=== PATIENT | male | born 1950 | race Caucasian/White ===

== ENCOUNTER 2017-08-14 08:16 | Emergency (ER) | payer OTHER ==
[2017-08-14 08:24] VITALS: BP 162/111
[2017-08-14] MEDS ORDERED: BUFFERED LIDOCAINE 10 ML SYRINGE SUBQ STA (08:25)
--- NOTE | 2017-08-14 08:54 | ED Physician Documentation ---
PD HPI UPPER EXT INJURY - Stated complaint Stated Complaint: LT HAND LAC - Chief complaint Chief Complaint: Laceration - History obtained from History obtained from: Patient - History of Present Illness Location: Left, Finger (index and middle) Type of injury: Blunt / blow, Laceration Where injury occurred: Work Timing - onset: Today Timing - duration: Minutes Timing - details: Abrupt onset, Still present Improved by: Rest, Immobilization Worsened by: Moving, Palpating Associated symptoms: No: Weakness, Numbness, Tingling, Swelling Contributing factors: No: Anticoagulated Similar symptoms before: Diagnosis (laceration) Recently seen: Not recently seen - Additonal information Additional information: Previously well 67-year-old male 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 He has been able to control bleeding with direct pressure. Review of Systems Constitutional: denies: Fever Eyes: denies: Decreased vision Ears: denies: Ear pain Nose: denies: Congestion Throat: denies: Sore throat Respiratory: denies: Cough GI: denies: Vomiting Skin: reports: Laceration (s) Musculoskeletal: reports: Extremity pain. denies: Neck pain, Back pain Neurologic: denies: Generalized weakness, Focal weakness, Numbness PD PAST MEDICAL HISTORY - Past Medical History Past Medical History: No - Past Surgical History Past Surgical History: No - Present Medications Home Medications: Ambulatory Orders Medication Instructions Recorded Confirmed No Known Home Medications [No 08/14/17 08/14/17 Known Home Medications] - Allergies Allergies/Adverse Reactions: Allergies Allergy/AdvReac Type Severity Reaction Status Date / Time No Known Drug Allergies Allergy Verified 11/20/15 07:15 - Social History Does the pt smoke?: No Smoking Status: Never smoker Does the pt drink ETOH?: No Does the pt have substance abuse?: No PD ED PE NORMAL - Vitals Vital signs reviewed: Yes (hypertensive) - General General: Alert and oriented X 3, No acute distress, Well developed/nourished - HEENT HEENT: Atraumatic, PERRL, EOMI - Respiratory Respiratory: No respiratory distress - Derm Derm: Normal color, Warm and dry, No rash - Extremities Extremities: No deformity, No edema, Other (There is a 3cm laceration dorsally over the proximal phlange of the index finger that does not involve deeper structures. There is a second 2cm laceration over the left middle finger dorsum of the proximal phlange and this laceratio is more superficial but penetrates the dermis. ) - Neuro Neuro: No motor deficit, No sensory deficit Eye Opening: Spontaneous Motor: Obeys Commands Verbal: Oriented GCS Score: 15 - Psych Psych: Normal mood, Normal affect Results - Vitals Vitals: Vital Signs - 24 hr 08/14/17 08:21 Temperature 36.8 C Heart Rate 67 Respiratory 16 Rate Blood Pressure 162/111 H O2 Saturation 97 Oxygen O2 Source Room air Procedures - Laceration (location) index and middle left Length in cm: 5 Wound type: Linear, Flap, Clean Neurovascular status: Sensory intact, Motor intact, Vascular intact Tendon involvement: Tendon intact Anesthesia: Lidocaine 1%, With bicarb Wound Preparation: Hibiclens, Irrigated copiously NS, Wound explored, To the base Skin layer closure: Nylon, Interrupted, Size #-0 - enter number (4-0) Other: Patient tolerated well, No complications, Neurovascular intact, Dressing applied, Tetanus UTD Complexity: Simple PD MEDICAL DECISION MAKING - ED course Complexity details: considered differential, d/w patient ED course: 67-year-old male with a laceration to the dorsal surface of the left index and middle finger has significant bleeding to the index finger laceration this is controlled with direct pressure and the bleeding is resolved with closing of the wound. Patient will need to have sutures removed in 7-10 days. Departure - Departure Disposition: 01 Home, Self Care Clinical Impression: Finger laceration Qualifiers: Encounter type: initial encounter Finger: index finger Damage to nail status: without damage Foreign body presence: without foreign body Laterality: left Qualified Code(s): S61.211A - Laceration without foreign body of left index finger without damage to nail, initial encounter Condition: Stable Instructions: ED Laceration Hand Follow-Up: Adam Page MD [Primary Care Provider] - Comments: sutures will need to be removed in 7-10 days.
[2017-08-14 09:01] LABS: MUDS CUTOFF CONCENTRATIONS CUTOFF CONC BELOW:
[2017-08-14 09:14] LABS: AMPHETAMINE SCREEN,URINE NEGATIVE (NEGATIVE); BENZODIAZEPINES SCREEN, URINE NEGATIVE (NEGATIVE); COCAINE SCREEN URINE NEGATIVE (NEGATIVE); METHADONE SCREEN, URINE NEGATIVE (NEGATIVE); METHAMPHETAMINES SCREEN, URINE NEGATIVE (NEGATIVE); OPIATE SCREEN, URINE NEGATIVE (NEGATIVE); OXYCODONE SCREEN, URINE NEGATIVE (NEGATIVE); PROPOXYPHENE SCREEN, URINE NEGATIVE (NEGATIVE); TRICYCLIC ANTIDEPRESSANT,URINE NEGATIVE (NEGATIVE)
== END 2017-08-14 09:11 | disposition home or self-care (01) ==
LOC: ED 08:16
DX: S61.210A Laceration without foreign body of right index finger without damage to nail, initial encounter (principal); S61.212A Laceration without foreign body of right middle finger without damage to nail, initial encounter; W22.8XXA Striking against or struck by other objects, initial encounter; Y99.0 Civilian activity done for income or pay
CPT/HCPCS: 1040M; 12002; 80306; 99283

== ENCOUNTER 2020-06-16 19:01 | Observation (INO) | payer MEDICARE, OTHER ==
--- NOTE | 2020-06-16 19:21 | ED Physician Documentation ---
PD HPI FOCAL NEURO - Stated complaint Stated Complaint: STROKE SYMPTOMS - Chief complaint Chief Complaint: Neuro - History obtained from History obtained from: Patient - Additional information Additional information: 70-year-old gentleman with untreated hypertension presents with right arm weakness that he noted upon getting up this morning at 8 AM. It was not present when he went to bed at approximately midnight last night. He does not notice any numbness or leg weakness. No headache. No recent head injury. Review of Systems Ten Systems: 10 systems reviewed and negative Constitutional: reports: Reviewed and negative Cardiac: reports: Reviewed and negative Respiratory: reports: Reviewed and negative PD PAST MEDICAL HISTORY - Past Surgical History Past Surgical History: No - Present Medications Home Medications: Ambulatory Orders Medication Instructions Recorded Confirmed No Known Home Medications 08/14/17 08/14/17 - Allergies Allergies/Adverse Reactions: Allergies Allergy/AdvReac Type Severity Reaction Status Date / Time No Known Drug Allergies Allergy Verified 11/20/15 07:15 - Social History Does the pt smoke?: No Smoking Status: Never smoker Does the pt drink ETOH?: No Does the pt have substance abuse?: No PD ED PE NORMAL - Vitals Vital signs reviewed: Yes - General General: Alert and oriented X 3, No acute distress - HEENT HEENT: PERRL, EOMI - Neck Neck: Supple, no meningeal sign, No bony TTP - Cardiac Cardiac: RRR, No murmur - Respiratory Respiratory: No respiratory distress, Clear bilaterally - Abdomen Abdomen: Soft, Non tender - Back Back: No CVA TTP, No spinal TTP - Derm Derm: Normal color, Warm and dry - Extremities Extremities: No edema, No calf tenderness / cord - Neuro Neuro: Alert and oriented X 3, No motor deficit, No sensory deficit, Normal speech NIHSS - Time Time: 19:15 - Level of Consciousness Level of consciousness: (0) Alert, Keenly responsive LOC Questions: (0) Answers both Q's correct LOC Commands: (0) Performs both correctly - Gaze Best Gaze: (0) Normal - Visual Visual: (0) No loss - Facial Palsy Facial Palsy: (0) Normal, symmetrical movement - Motor Arms (both separate) Motor Arm (right): (0) No drift Motor Arm (left): (0) No drift - Motor Legs (both separate) Motor Leg (right): (0) No drift Motor Leg (left): (0) No drift - Limb Ataxia Limb Ataxia: (0) Absent - Sensory Sensory: (0) Normal - Best Language Best Language: (0) No aphasia - Dysarthria Dysarthria: (0) Normal - Extinction and Inattention (formally neg Extinction and inattention: (0) No abnormality - Total Score/Results Total Score/Result: 0 Results - Vitals Vitals: Vital Signs - 24 hr 06/16/20 06/16/20 06/16/20 19:05 19:15 19:30 Temperature 36.1 C L Heart Rate 90 86 81 Respiratory 17 15 15 Rate Blood Pressure 206/113 H 200/125 H 184/108 H O2 Saturation 97 95 96 06/16/20 06/16/20 20:00 21:37 Temperature Heart Rate 83 86 Respiratory 16 16 Rate Blood Pressure 183/113 H 187/130 H O2 Saturation 95 Oxygen O2 Source Room air - EKG (time done) 1911 Rate: Rate (enter#) (86) Rhythm: NSR, LAE [place]: Normal Intervals: Normal SD QRS: Normal Ischemia: Normal ST segments - Labs Labs: Laboratory Tests 06/16/20 06/16/20 06/16/20 19:22 19:22 19:22 WBC 10.4 RBC 5.90 Hgb 17.9 Hct 52.3 H MCV 88.6 MCH 30.3 MCHC 34.2 RDW 13.7 Plt Count 259 MPV 9.2 Neut # (Auto) 7.0 H Lymph # (Auto) 2.8 [place] # (Auto) 0.4 Eos # (Auto) 0.2 Baso # (Auto) 0.1 Absolute Nucleated RBC 0.00 Nucleated RBC % 0.0 PT 12.8 H INR 1.2 Sodium 138 Potassium 3.5 Chloride 103 Carbon Dioxide 27 Anion Gap 8.0 BUN 18 Creatinine 1.3 H Estimated GFR (MDRD) 55 L Glucose 137 H POC Whole Bld Glucose Calcium 9.1 Total Bilirubin 1.1 H AST 25 ALT 32 Alkaline Phosphatase 46 Total Protein 7.6 Albumin 4.6 Globulin 3.0 Albumin/Globulin Ratio 1.5 06/16/20 19:24 WBC RBC Hgb Hct MCV MCH MCHC RDW Plt Count MPV Neut # (Auto) Lymph # (Auto) [place] # (Auto) Eos # (Auto) Baso # (Auto) Absolute Nucleated RBC Nucleated RBC % PT INR Sodium Potassium Chloride Carbon Dioxide Anion Gap BUN Creatinine Estimated GFR (MDRD) Glucose POC Whole Bld Glucose 143 H Calcium Total Bilirubin AST ALT Alkaline Phosphatase Total Protein Albumin Globulin Albumin/Globulin Ratio - Rads (name of study) CTA Head and neck Radiology: EMP read contemporaneously PD MEDICAL DECISION MAKING - ED course ED course: 70-year-old gentleman presents with right arm weakness although his NIH stroke scale is 0 and he is well outside of any time window that would be appropriate for considering TPA. CT angiography of the head and neck demonstrates only vertebral artery plaquing and calcification but without large vessel occlusion or actual evidence of acute stroke or hemorrhage. Discussed with him that standard of care would be admission for further work-up including MRI and that the MRI machine here is down for the foreseeable future and offered to send him to another facility for standard work-up but he prefers to stay here and have the MRI done subsequently as an outpatient and Dr. Verasef agrees to hospitalize him in observation. Departure - Departure Disposition: ED Place in Observation Clinical Impression: Cerebrovascular accident (CVA) Qualifiers: CVA mechanism: unspecified Qualified Code(s): I63.9 - Cerebral infarction, unspecified Condition: Stable
[2020-06-16 19:34] LABS: BASOPHILS # (AUTO) 0.1 10^3/uL (0.0-0.1); BASOPHILS % (AUTO) 0.5 %; EOSINOPHILS # (AUTO) 0.2 10^3/uL (0.0-0.7); EOSINOPHILS % (AUTO) 1.7 %; HCT - HEMATOCRIT 52.3 % (42.0-52.0); HGB - HEMOGLOBIN 17.9 g/dL (14.0-18.0); LYMPHOCYTES # (AUTO) 2.8 10^3/uL (1.5-3.5); LYMPHOCYTES % (AUTO) 26.7 %; MEAN CORPUSCULAR HEMOGLOBIN 30.3 pg (27.0-31.0); MEAN CORPUSCULAR HGB CONC 34.2 g/dL (32.0-36.0); MEAN CORPUSCULAR VOLUME 88.6 fL (80.0-94.0); MEAN PLATELET VOLUME 9.2 fL (7.4-11.4); MONOCYTES # (AUTO) 0.4 10^3/uL (0.0-1.0); NEUTROPHILS % (AUTO) 66.8 %; PLT - PLATELET COUNT 259 10^3/uL (130-450); RED CELL DISTRIBUTION WIDTH 13.7 % (12.0-15.0); WHITE BLOOD COUNT 10.4 x10^3/uL (4.8-10.8)
[2020-06-16 19:40] LABS: INR 1.2 (0.8-1.2); PT - PROTHROMBIN TIME 12.8 secs (9.9-12.6)
[2020-06-16] MEDS ORDERED: IOVERSOL 320 100 ML VIAL IVP ONE ×2 (19:40→20:39)
[2020-06-16 19:46] LABS: ALBUMIN 4.6 g/dL (3.2-5.5); ALBUMIN/GLOBULIN RATIO 1.5 (1.0-2.2); BILIRUBIN,TOTAL 1.1 mg/dL (0.2-1.0); CALCIUM 9.1 mg/dL (8.5-10.3); CREATININE 1.3 mg/dL (0.6-1.2); POTASSIUM 3.5 mmol/L (3.5-5.0); TOTAL PROTEIN 7.6 g/dL (6.7-8.2)
--- NOTE | 2020-06-16 21:12 | CT Report ---
PROCEDURE: ANGIO HEAD W/WO INDICATIONS: Stroke like sx CONTRAST: IV CONTRAST: Optiray 320 ml: 100 PO CONTRAST: *NO PO CONTRAST TECHNIQUE: Precontrast 4.5 mm thick angled axial sections acquired from the foramen magnum to the vertex. Afte r the administration of intravenous contrast, 1 mm thick sections acquired through the [place] of [place] is. Postcontrast 4.5 mm thick sections then re-acquired from the foramen magnum to the vertex. 3-di mensional asyfune-voiqgirrk-qgzzzadrcn (MIP) and/or volume rendering reformats were acquired of the c entral intracranial vasculature. For radiation dose reduction, the following was used: automated ex posure control, adjustment of mA and/or kV according to patient size. COMPARISON: None. FINDINGS: Image quality: Excellent. Anterior circulation: Intracranial internal carotid arteries are normal in size and flow. Both ACAs are supplied by the left internal carotid artery. 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 The f low within the paired anterior cerebral arteries is normal and symmetric. The flow within the middle cerebral arteries is normal and symmetric. No aneurysms are seen. Posterior circulation: Visualized portions of the vertebral arteries demonstrate normal caliber, and join to form a normal appearing basilar artery. Flow within the posterior cerebral arteries is norm al and symmetric. No aneurysms are seen. CSF spaces: Ventricles are normal in size and shape. Basal cisterns are patent. No extra-axial flu id collections. Brain: No midline shift. No intracranial bleeds or masses. Johnson-white matter interface appears int act. Skull and face: Calvarium and facial bones appear intact, without suspicious lesions. Sinuses: Visualized sinuses and mastoids are clear. IMPRESSION: No intracranial focal stenosis or occlusion. No acute intracranial abnormality Reviewed by: Saul Cahn MD on 06/16/2020 9:11 PM PDT Approved by: Saul Chan MD on 06/16/2020 9:11 PM PDT Station ID: [id number]
--- NOTE | 2020-06-16 21:16 | CT Report ---
PROCEDURE: ANGIO NECK W INDICATIONS: Stroke like sx CONTRAST: IV CONTRAST: Optiray 320 ml: 100 PO CONTRAST: *NO PO CONTRAST TECHNIQUE: After the administration of intravenous contrast, 1.5 mm axial sections acquired from the aortic arch to the [place] of [place]. Coronal 3-D maximum intensity projection (MIP) and/or volume rendering ref ormats were then performed. For radiation dose reduction, the following was used: automated exposur e control, adjustment of mA and/or kV according to patient size. COMPARISON: None. FINDINGS: Image quality: Excellent. Carotid system: The great vessels demonstrate a conventional anatomy as they arise from the aortic a [facility]. The origins of the common carotid arteries appear patent. The common carotid arteries demonstr ate normal calibers and courses. The bifurcation regions appear normal bilaterally. The internal ca rotid arteries demonstrate normal caliber and course. Bilateral carotid atherosclerotic calcification s. Posterior circulation: Densely calcified origins of the vertebral arteries. The more superior portions of the vertebral arteries demonstrate normal course and caliber. They kuldeep n to form a normal appearing basilar artery. Soft tissues: Visualized neck soft tissues demonstrate no suspicious abnormalities. The thyroid gla nd is normal in size. Bones: No suspicious bony lesions. Cervical spondylosis and facet arthropathy. IMPRESSION: Mild bilateral carotid atherosclerotic calcifications. No hemodynamically significant focal ICA steno sis. Bilateral dense calcified plaque seen at the origin of the vertebral arteries. The estimate of stenosis included in the report of the imaging study was calculated using the NASCET method Reviewed by: Saul Chan MD on 06/16/2020 9:15 PM PDT Approved by: Saul Chan MD on 06/16/2020 9:15 PM PDT Station ID: [id number]
[2020-06-16] MEDS ORDERED: ASPIRIN 325 MG TABLET PO STA (21:25)
[2020-06-16] MEDS ORDERED: SODIUM CHLORIDE FLUSH 0.9% 10 ML SYRINGE IVP PRN (21:28)
[2020-06-16] MEDS ORDERED: ONDANSETRON 4 MG/2 ML VIAL IVP PRN (21:28)
[2020-06-16] MEDS ORDERED: ONDANSETRON ODT 4 MG TABLET TL PRN (21:28)
[2020-06-16] MEDS ORDERED: ACETAMINOPHEN 325 MG TABLET PO PRN (21:28)
--- NOTE | 2020-06-16 21:33 | HISTORY & PHYSICAL EXAMINATION ---
Chief Complaint - Chief Complaint Chief Complaint: Right arm weakness History of Present Illness - Admitted From Admitted From:: Home - History Obtained From Records Reviewed: Yes History obtained from: Patient, ER Physician, EMR - History of Present Illness HPI Comment/Other: This is a 70-year-old male with no significant past medical history who presents today complaining of right arm weakness that began this morning. He states he woke up at about 8 AM and noticed that his right arm was weaker than normal. He felt weak throughout the whole arm but denied any numbness or tingling. He reports the weakness was quite minimal and that it felt more like he had poor dexterity. He felt like he was struggling to drink coffee in the morning using his right hand and would need to assist his hand with his left hand to prevent him from spilling. He reported no facial droop or difficulty speaking. He reported no lower extremity weakness. Despite denying lower extremity weakness, he states his legs felt a little heavier today and he felt like his balance may have been slightly off. Denied any headache or change in vision. He reports no prior history of strokes. He feels like his symptoms have not gotten a whole lot better or worse throughout the day. He is not on aspirin. Denies a history of hypertension or diabetes. He quit smoking over 30 years ago but did smoke 2- 1/2 packs a day for about 20 years. In the emergency department, he was found to be afebrile with a temperature of 36.1 C. Heart rate is 90. Blood pressure was 206/113. He was not tachypneic and was saturating well on room air. Labs were significant for a creatinine of 1.3. CTA of the head with and without contrast was unremarkable. CTA of the neck showed mild bilateral carotid calcifications and bilateral dense calcified plaques at the origin of the vertebral arteries. He was given aspirin in the emergency department and medicine was consulted for admission. The emergency department provider did speak with the patient regarding transfer for MRI but the patient declined this. I did discuss goals of care with the patient he would like to be a full code. History - Past Medical History Cardiovascular: reports: None Respiratory: reports: None Neuro: reports: None - Family & Social History Family History Comment/Other: He reports his father had hypertension and a stroke. His mother had COPD. She was a smoker. Living arrangement: At home Living Situation: With spouse/s.o. Social History Notes: He lives at home with his . 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 He smokes 2-1/2 packs a day for about 20 years but quit over 30 years ago. Will have an occasional alcoholic beverage. Meds/Allgy - Home Medications Home Medications: Ambulatory Orders Medication Instructions Recorded Confirmed No Known Home Medications 08/14/17 08/14/17 - Allergies Allergies/Adverse Reactions: Allergies Allergy/AdvReac Type Severity Reaction Status Date / Time No Known Drug Allergies Allergy Verified 11/20/15 07:15 Review of Systems - Constitutional Constitutional: reports: Weakness. denies: Fatigue, Fever, Chills - Eyes Eyes: denies: Blurred vision, Vision loss - Ears, Nose & Throat Ears, Nose & Throat: denies: Sore throat - Cardiovascular Cariovascular: denies: Chest pain, Lightheadedness, Syncope, Exertional dyspnea, Decr. exercise tolerance - Respiratory Respiratory: denies: Cough, SOB at rest, SOB with exertion - Gastrointestinal Gastrointestinal: denies: Abdominal pain, Constipation, Diarrhea, Nausea, Vomiting - Genitourinary Genitourinary: denies: Dysuria, Frequency, Urgency - Musculoskeletal Musculoskeletal: reports: Muscle weakness. denies: Muscle pain, Limited range of motion - Integumentary Integumentary: denies: Rash - Neurological Neurological: reports: Focal weakness, Abnormal gait, Incoordination. denies: General weakness, Headache, Dizziness, Numbness, Pre-existing deficit, Slurred speech - Hematologic/Lymphatic Hematologic/Lymphatic: denies: Bleeding tendencies - All Other Systems All Other Systems: reports: Reviewed and negative Prior Level of Functionality: He is independent with his ADLs. Exam - Vital Signs Reviewed Vital Signs: Yes Vital Signs: Vital Signs x48h Temp Pulse Resp BP Pulse Ox 06/16/20 19:05 36.1 C L 90 17 206/113 H 97 - Physical Exam General Appearance: positive: No acute distress, Alert Eyes Bilateral: positive: Normal inspection, PERRL, Conjunctivae nml ENT: positive: ENT inspection nml Neck: positive: Nml inspection Respiratory: positive: No respiratory distress. negative: Wheezes, Rales Cardiovascular: positive: Regular rate & rhythm, No murmur. negative: Irregularly irregular, Tachycardia, Systolic murmur Abdomen: positive: Non-tender, No distention. negative: Tenderness Skin: positive: Warm, Dry Extremities: positive: Full ROM, No pedal edema Neurologic/Psychiatric: positive: Sensation nml, Other (He has a slightly abnormal jephto-ew-tmda test with the right upper extremity. There is very mild pronator drift of the right upper extremity. Negative [place]. Normal wdco-hf-mpme.). negative: Motor nml (His gross motor strength is 5 out of 5 in all 4 extremities. He does appear to have a slight deficit in his right upper extremity compared to the left but this is quite minimal.), Disoriented to person, Disoriented to place, Disoriented to time, Sensory loss, Facial droop, Slurred/abnml speech Conclusion/Plan - Problem List (1) Cerebrovascular accident (CVA) Conclusion/Plan: His presentation is concerning for a stroke given his ongoing deficits although they are quite subtle. He is not a candidate for TPA as he is outside the window with a NIHSS score of 0. Imaging did not reveal any significant stenosis or occlusion. We will place in observation and continue him on aspirin 81 mg daily. Start him on Lipitor 40 mg in the evening. Will allow for permissive hypertension given the concern for stroke. Echocardiogram. Monitor on telemetry. Neurochecks. Check A1c and lipid panel in the morning. Both the emergency department provider and myself discussed transfer for MRI but the patient preferred to have this done on outpatient basis. Qualifiers: CVA mechanism: unspecified Qualified Code(s): I63.9 - Cerebral infarction, unspecified (2) Hypertension Conclusion/Plan: His blood pressure is elevated but we will allow for permissive hypertension given the concern for stroke. Goal systolic blood pressure less than 220 and diastolic blood pressures less than 120. - Lab Results Lab results reviewed: Yes Fish Bones: 06/16/20 19:22 06/16/20 19:22 - Diagnostic Imaging Results Diagnostic Imaging Results: positive: Final report reviewed - EKG Results EKG Interpreted Independently: Yes EKG Comparison: Changed from prior EKG (PACs no longer present.) EKG Findings: EKG reveals a sinus rhythm without any obvious ST segment changes. Core Measures - Anticipated LOS I expect patient to be DC'd or transferred within 96 hours.: Yes - Issues Hospital Issues and Management Plan: 70-year-old male presents with right upper extremity weakness concerning for stroke. We will admit for echocardiogram, telemetry, aspirin, statin. - DVT/VTE - Prophylaxis VTE/DVT Device ordered at admit?: Yes VTE/DVT Prophylaxis med ordered at admit?: No Not Ordered - Medical Reason: Not indicated
[2020-06-17] MEDS: SODIUM CHLORIDE FLUSH 0.9% 10 ML SYRINGE IVP SCH ×2 (00:14→08:00)
[2020-06-17 05:18] LABS: BASOPHILS # (AUTO) 0.1 10^3/uL (0.0-0.1); BASOPHILS % (AUTO) 0.5 %; EOSINOPHILS # (AUTO) 0.4 10^3/uL (0.0-0.7); HCT - HEMATOCRIT 50.5 % (42.0-52.0); HGB - HEMOGLOBIN 16.9 g/dL (14.0-18.0); LYMPHOCYTES # (AUTO) 2.8 10^3/uL (1.5-3.5); LYMPHOCYTES % (AUTO) 29.3 %; MEAN CORPUSCULAR HEMOGLOBIN 30.1 pg (27.0-31.0); MEAN CORPUSCULAR HGB CONC 33.5 g/dL (32.0-36.0); MEAN CORPUSCULAR VOLUME 89.9 fL (80.0-94.0); MEAN PLATELET VOLUME 9.1 fL (7.4-11.4); MONOCYTES # (AUTO) 0.7 10^3/uL (0.0-1.0); MONOCYTES % (AUTO) 7.5 %; NEUTROPHILS # (AUTO) 5.6 10^3/uL (1.5-6.6); NEUTROPHILS % (AUTO) 58.4 %; PLT - PLATELET COUNT 235 10^3/uL (130-450); RED BLOOD COUNT 5.62 10^6/uL (4.70-6.10); RED CELL DISTRIBUTION WIDTH 13.9 % (12.0-15.0); WHITE BLOOD COUNT 9.6 x10^3/uL (4.8-10.8)
[2020-06-17 05:35] LABS: BUN - BLOOD UREA NITROGEN 17 mg/dL (6-20); CALCIUM 8.5 mg/dL (8.5-10.3); CARBON DIOXIDE - CO2 23 mmol/L (21-32); CHLORIDE 106 mmol/L (101-111); CHOL/HDL RATIO 5.4 (<5.0); CHOLESTEROL 199 mg/dL; CREATININE 1.1 mg/dL (0.6-1.2); GFR - MDRD 67 (>89); GLUCOSE 107 mg/dL (70-100); HDL CHOLESTEROL 37 mg/dL; LDL CHOLESTEROL,CALCULATED 140 mg/dL; LDL/HDL RATIO 3.8 (<3.6); MAGNESIUM 2.2 mg/dL (1.7-2.8); POTASSIUM 3.4 mmol/L (3.5-5.0); SODIUM 135 mmol/L (135-145); TRIGLYCERIDES 111 mg/dL; VLDL CHOLESTEROL 22 mg/dL
[2020-06-17] MEDS ORDERED: POTASSIUM CHLORIDE 20 MEQ TABLET PO ONE (08:00)
[2020-06-17] MEDS ORDERED: ASPIRIN EC 81 MG TABLET PO SCH (09:00)
--- NOTE | 2020-06-17 10:40 | PHARMACY PROGRESS NOTE ---
- Best Possible Medication History Admit Date and Time: 06/16/202127 Processed by: Pharmacy Medication History completed: Yes Patient Interview: Pt interview ONLY source (Pt interviewed by Sean 3.29.21) As the person ultimately responsible for medication therapy, providers are able to order a medication from an existing home medication list in [facility] via the "Reconcile Routine" prior to Confirmation of that medication by work station support specialist. Such practice is discouraged except when the physician, in their clinical judgment, deems that a medical need exists for a medication without regard to previous use.
--- NOTE | 2020-06-17 11:40 | Discharge Plan ---
Discharge Plan Problem Reviewed?: Yes Disposition: Home, Self Care Condition: Stable Prescriptions: Aspirin EC [Ecotrin] 81 mg PO DAILY #30 tablet Atorvastatin [Lipitor] 40 mg PO QPM #30 tablet Diet: Cardiac Activity Restrictions: Activity as Tolerated Shower Restrictions: No Driving Restrictions: No Instruction Topics: Meds Cholesterol, TIA Health Concerns: You were placed in Observation status to evaluate symptoms of a stroke which have resolved. This is being diagnosed as a TIA (transient ischemic attack). We found that you have a high cholesterol level for which you need to take a cholesterol medication, to decrease the chances of a future stroke. Also, please take 1 baby aspirin daily to prevent future strokes. 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 You will need your Primary Care Provider to give you a referral to a General Matcher to manage this patent foramen ovale. Please see your PCP in the next 5 to 10 days for hospital follow-up, to check your blood pressure as you may need a BP med, and to discuss this referral to Cardiology. Plan of Treatment: As above. Care Goals: Improvement in symptoms and stabilization are the goals. Assessment: The patient understands and is agreeable with the plan. Additional Instructions or Follow Up instructions: If you have new or worsening symptoms, call your PCP for advice or come to the ER. No Smoking: If you smoke, Please STOP! Call for help. Follow-up with: Adam Page MD [Primary Care Provider] -
[2020-06-17 12:00] LABS: ESTIMATED AVERAGE GLUCOSE 108 mg/dL (70-100); HEMOGLOBIN A1c% 5.4 % (4.27-6.07)
--- NOTE | 2020-06-17 12:32 | DISCHARGE SUMMARY ---
Discharge Summary Admit Date: 06/16/20 Discharge Date: 06/17/20 Discharging Provider: Dr Cecilia Bucio Primary Care Provider: Dr Adam Page Code Status: Attempt Resuscitation Condition at Discharge: Stable Discharge Disposition: 01 Home, Self Care - HPI History of Present Illness: From the admission H&P of Dr Cullen Lopezf: This is a 70-year-old male with no significant past medical history who presents today complaining of right arm weakness that began this morning. He states he woke up at about 8 AM and noticed that his right arm was weaker than normal. He felt weak throughout the whole arm but denied any numbness or tingling. He reports the weakness was quite minimal and that it felt more like he had poor dexterity. He felt like he was struggling to drink coffee in the morning using his right hand and would need to assist his hand with his left hand to prevent him from spilling. He reported no facial droop or difficulty speaking. He reported no lower extremity weakness. Despite denying lower extremity weakness, he states his legs felt a little heavier today and he felt like his balance may have been slightly off. Denied any headache or change in vision. He reports no prior history of strokes. He feels like his symptoms have not gotten a whole lot better or worse throughout the day. He is not on aspirin. Denies a history of hypertension or diabetes. He quit smoking over 30 years ago but did smoke 2- 1/2 packs a day for about 20 years. In the emergency department, he was found to be afebrile with a temperature of 36.1 C. Heart rate is 90. Blood pressure was 206/113. He was not tachypneic and was saturating well on room air. Labs were significant for a creatinine of 1.3. CTA of the head with and without contrast was unremarkable. CTA of the neck showed mild bilateral carotid calcifications and bilateral dense calcified plaques at the origin of the vertebral arteries. He was given aspirin in the emergency department and the Hospitalist was consulted for admission. The emergency department provider did speak with the patient regarding transfer for MRI but the patient declined this. I did discuss goals of care with the patient he would like to be a full code. - HOSPITAL COURSE Hospital Course: (1) Cerebrovascular accident (CVA) His presentation was concerning for a stroke given his ongoing deficits although they were quite subtle. He was not a candidate for TPA as he was outside the window and had a NIHSS score of 0. Imaging did not reveal any significant stenosis or occlusion. Both the emergency department provider and the admitting Hospitalist discussed transfer for MRI (which is currently not available at this hospital), but the patient preferred to have this done on outpatient basis. He was placed in Observation and continued on aspirin 81 mg daily and started on Lipitor 40 mg in the evening. We allowed for permissive hypertension given the concern for stroke. Echocardiogram was done that showed a PFO was present, no clot seen and he had normal LV function. He was evaluated by PT and OT who commented that no significant deficit was present. Telemetry showed no Afib. He was discharged the next day on daily aspirin and statin and advised to see his PCP for hospital follow-up. (2) Hypertension His blood pressure was elevated but we allowed for permissive hypertension, give n the concern for stroke. Goal systolic blood pressure less than 200 and diastolic blood pressures less than 120 while here. He was advised to see his PCP for possible need for starting a BP med in several days. (3) PFO Because of the PFO, he should get referral to a Magnetic Tester to be offered PFO closure. (4) Hyperlipidemia His fasting morning lipid panel showed an LDL of 140. He was sent home with advice to follow a low cholesterol diet and on a new prescription for Lipitor 40 mg. - ALLERGIES Allergies/Adverse Reactions: Allergies Allergy/AdvReac Type Severity Reaction Status Date / Time No Known Drug Allergies Allergy Verified 11/20/15 07:15 - MEDICATIONS Home Medications: Ambulatory Orders Medication Instructions Recorded Confirmed Aspirin EC [Ecotrin] 81 mg PO DAILY #30 tablet 06/17/20 Atorvastatin [Lipitor] 40 mg PO QPM #30 tablet 06/17/20 Fexofenadine [Jovanna] 60 mg PO DAILY 06/17/20 06/17/20 Multivit-Min/Folic/Vit K/Lycop 1 tab PO DAILY 06/17/20 06/17/20 [One Daily Men's 50 Plus D3 Tab] - PHYSICAL EXAM AT DISCHARGE General Appearance: positive: No acute distress, Alert, Other (Male pattern baldness) Eyes Bilateral: positive: Normal inspection, EOMI ENT: positive: ENT inspection nml, No signs of dehydration Neck: positive: Nml inspection, No JVD Respiratory: positive: No respiratory distress, Breath sounds nml Cardiovascular: positive: Regular rate & rhythm, No murmur Abdomen: positive: Non-tender, No distention Skin: positive: Warm, Dry Extremities: positive: Non-tender, No pedal edema Neurologic/Psychiatric: positive: Oriented x3, Motor nml - LABS Result Diagrams: 06/17/20 04:49 06/17/20 04:49 - DIAGNOSTIC IMAGING Diagnostic Imaging Results: Final report reviewed - FOLLOW UP Follow Up: See PCP in the next 5-10 days for hospital follow-up, to get an outpatient MRI, to be referred to Cardiology, and to possibly start a blood pressure med. - TIME SPENT Time Spent in Discharge (Minutes): 25
[2020-06-17 12:46] VITALS: BP 194/94
[2020-06-17] MEDS ORDERED: ATORVASTATIN 40 MG TABLET PO SCH (21:00)
== END 2020-06-17 14:00 | disposition home or self-care (01) ==
LOC: ED 19:01 → MS2 21:28
PROVIDERS: ADMIT Internal Medicine; ATTEND Internal Medicine
DX: I63.9 Cerebral infarction, unspecified (principal); I10 Essential (primary) hypertension; R29.700 NIHSS score 0; Q21.1 Atrial septal defect; E78.5 Hyperlipidemia, unspecified; I65.23 Occlusion and stenosis of bilateral carotid arteries; Z20.822 Contact with and (suspected) exposure to COVID-19; Z87.891 Personal history of nicotine dependence
CPT/HCPCS: 36415; 70496; 70498; 80048; 80053; 80061; 83036; 83735; 85025; 85610; 93005; 93306; 97161; 97166; 99283; 99285; A9270; G0378; Q9967; U0004; 83721

== ENCOUNTER 2022-05-07 13:02 | Emergency (ER) | payer MEDICARE, OTHER ==
[2022-05-07] MEDS ORDERED: oxyCODONE 5 MG TABLET PO STA (13:46)
--- NOTE | 2022-05-07 13:46 | ED Physician Documentation ---
History of Present Illness - Stated complaint Stated Complaint: RT HIP/LEG PX - Chief complaint Chief Complaint: Ext Problem - History obtained from History obtained from: Patient - Additonal information Additional information: 71-year-old gentleman with history of stroke on amlodipine, losartan, atorvastatin and aspirin presents with severe right hip pain with numbness and pain radiating down the right leg starting this morning acutely. He had a similar episode maybe 22 years ago that went away after a week. There was no specific injury but he felt something kind of tight when he was putting on his pants yesterday. He notes tingling numbness in the right leg. He is more comfortable laying in a left lateral decubitus position. Denies bowel or bladder incontinence. PD PAST MEDICAL HISTORY - Past Medical History Cardiovascular: None, Hypertension Respiratory: None Neuro: None - Past Surgical History Past Surgical History: No - Present Medications Home Medications: Ambulatory Orders Medication Instructions Recorded Confirmed Aspirin EC [Ecotrin] 81 mg PO DAILY #30 tablet 06/17/20 Atorvastatin [Lipitor] 40 mg PO QPM #30 tablet 06/17/20 Fexofenadine [Ojvanna] 60 mg PO DAILY 06/17/20 06/17/20 Multivit-Min/Folic/Vit K/Lycop 1 tab PO DAILY 06/17/20 06/17/20 [One Daily Men's 50 Plus D3 Tab] Oxycodone HCl/Acetaminophen 1 - 2 each PO Q6H PRN #7 tablet 05/07/22 [Percocet 5-325 mg Tablet] predniSONE [Deltasone] 20 mg PO [id number] #21 tab 05/07/22 - Allergies Allergies/Adverse Reactions: Allergies Allergy/AdvReac Type Severity Reaction Status Date / Time No Known Drug Allergies Allergy Verified 11/20/15 07:15 - Social History Does the pt smoke?: No Smoking Status: Former smoker Does the pt drink ETOH?: No Does the pt have substance abuse?: No PD ED PE NORMAL - Vitals Vital signs reviewed: Yes - General General: Alert and oriented X 3, Other (He is laying in a left lateral decubitus position and cannot move from that position due to pain.) - Abdomen Abdomen: Normal bowel sounds, Soft, Non tender - Back Back: Other (Mild tenderness near L3-L4) - Derm Derm: Normal color, Warm and dry - Extremities Extremities: Other (Diminished sensation diffusely throughout the right leg with normal lower extremity reflexes and strength.) - Neuro Neuro: Alert and oriented X 3, Normal speech Results - Vitals Vitals: Vital Signs - 24 hr 05/07/22 05/07/22 13:10 18:36 Temperature 36.7 C Heart Rate 81 88 Respiratory 18 18 Rate Blood Pressure 145/89 H 145/88 H O2 Saturation 99 96 Oxygen O2 Source Room air - Rads (name of study) L spine MRI With multilevel findings. See MDM. Radiology: Final report received, EMP read indepedently PD Medical Decision Making - ED course ED course: 71-year-old gentleman presents with severe new low back pain, positive neurologic findings most consistent with disc herniation. Red flags including age. As such MRI was done with multiple findings but I think the culprit finding probably is severe neuroforaminal narrowing at L5-S1. He felt much better after p.o. oxycodone here. Given a copy of his MRI on CD to aid in follow-up. Departure - Departure Disposition: 01 Home, Self Care Clinical Impression: Sciatica Qualifiers: Laterality: right Qualified Code(s): M54.31 - Sciatica, right side Condition: Good Record reviewed to determine appropriate education?: Yes Instructions: ED Sciatica Prescriptions: predniSONE [Deltasone] 20 mg PO [id number] #21 tab Oxycodone HCl/Acetaminophen [Percocet 5-325 mg Tablet] 1 - 2 each PO Q6H PRN #7 tablet PRN Reason: pain Comments: As discussed, there were many abnormalities on the MRI of your low back but I think that the actual lesion that is causing your pain is probably the L5-S1 right-sided neuroforaminal severe narrowing which would cause your symptoms. Follow-up with your primary care physician and discuss physical therapy, potentially spine referral if not improving. Take the copy of the MRI on CD with you to any follow-up appointments. Return for new or worsening symptoms. I sent your prescription electronically to [facility] in [place]. I am prescribing a short course of narcotic pain medication for you. These are potentially dangerous and addictive medications that should be used carefully. These medications may constipate you. Take an [id number]-mjh-[id number] stool softener (docusate) twice daily with plenty of water while taking these medications. If you go 24 hours without a bowel movement, take mece-wqj-vkeurax miralax, per package instructions. Do not drink or drive while taking these medications. If you received narcotic or sedating medications while in the emergency department, do not drive for 24 hours. Store this medication in a safe, secure place and out of reach of children. It is a violation of federal law to give or sell this medication to another person or to use in a manner other than prescribed. The ED will not refill narcotic prescriptions, including prescriptions lost or stolen. To dispose of unwanted medications: 1. [facility] at [address] in [place] has a medication drop box. They accept prescription medications (in pill form) Wednesday through Wednesday 9:00 a.m. to 5:00 p.m. 2. [facility] accepts prescription medications (in pill form only) for disposal year round. Call for more information. 3. Contact the [facility] for the next [facility] sponsored prescription drug collection event. , [phone], or [phone]; Note that many narcotic pain relievers also contain Tylenol/acetaminophen. Please ensure that your total dose of acetaminophen from all sources does not exceed 3 g (3000 mg) per day.
--- NOTE | 2022-05-07 18:35 | MRI Report ---
PROCEDURE: LUMBAR SPINE WO INDICATIONS: radicular pain TECHNIQUE: Noncontrast sagittal T1 spin echo and T2 fast echo, sagittal STIR, axial T1 and T2 fast spin echo thr ough the lumbar spine. In cases with scoliosis, additional coronal T2 fast spin echo may be performe d. COMPARISON: None. FINDINGS: Image quality: Motion artifact is noted. Alignment and Curvature: There is normal minimal retrol isthesis seen at L1-L2, L2-L3 and L5-S1. Bone Marrow: Marrow is of normal overall signal. No acute vertebral body compression fractures. Spinal Cord: Conus medullaris terminates at the L1 level. Visualized cord demonstrates normal signa l and size. Paraspinous Soft Tissues: No paravertebral masses. T12-L1: Bridging anterior osteophytes are seen. No significant neural foraminal or central canal checo rowing can be seen. L1-L2: Moderate loss of disc height and signal are seen. Moderate disc bulge is seen at this leve l. A superimposed central disc protrusion is seen. Note is made of an annular fissure posteriorly. Moderate facet hypertrophy is seen. Moderate bilateral neural foraminal narrowing is seen. Mode rate central canal narrowing is seen. L2-L3: Mild loss of disc height and disc signal are seen. Moderate disc bulge is seen at this lev el. A superimposed central disc protrusion is seen. Note is made of an annular fissure posteriorly. Moderate facet hypertrophy is seen. Moderate bilateral neuroforaminal narrowing can be seen, right w orse than left. Mild to moderate central canal narrowing is seen. L3-L4: The disc height is relatively well preserved. No significant loss of disc height is seen. Mo derate disc bulge is seen at this level. Moderate facet hypertrophy is seen. Moderate bilateral neur oforaminal narrowing can be seen, right worse than left. Minimal central canal narrowing is seen. L4-L5: The disc height and disc signal are relatively well-preserved. Moderate bulge A superimposed central disc protrusion is seen. Moderate facet hypertrophy is seen. There is at least moderate left-sided and moderate right-sided neuroforaminal narrowing. Mild centra l canal narrowing is seen. L5-S1: The disc height is well-preserved. There is loss of disc signal seen. Mild to moderate disc bulge is seen, with a mild central disc protrusion. Mild facet hypertrophy is seen. Moderate to farshad re bilateral neural foraminal narrowing can be seen, with associated compression upon the exiting ner ve roots. Mild central canal narrowing is seen. IMPRESSION: Multiple levels of lumbar spine degenerative change can be seen, including moderate to s evere bilateral neuroforaminal narrowing at L5-S1 with associated exiting L5 nerve root compression. Reviewed by: Felix Tavarez MD on 05/07/2022 5:34 PM AKST Approved by: Felix Tavarez MD on 05/07/2022 5:34 PM [place] Station ID: [id number]
[2022-05-07 18:36] VITALS: BP 145/88
[2022-05-07] MEDS ORDERED: predniSONE 20 MG TABLET PO STA (18:50)
[2022-05-07] MEDS ORDERED: oxyCODONE/ACET 5/325 Prepack 4 PO STA (18:50)
== END 2022-05-07 19:01 | disposition home or self-care (01) ==
LOC: ED 13:02
DX: M54.31 Sciatica, right side (principal); Z87.891 Personal history of nicotine dependence
CPT/HCPCS: 72148; 99283; 99284; A9270; J7512